=== PATIENT | male | born 1985 | race Hispanic/Latino ===

== ENCOUNTER 2018-02-04 22:01 | Emergency (ER) | payer OTHER ==
[2018-02-04 22:11] VITALS: RESP 18
[2018-02-04 23:03] LABS: BASO % 0.4 % (0.0-2.0); EOS # 0.2 K/uL (0.0-0.7); HEMOGLOBIN 15.1 g/dL (12.0-18.0); LYMPH # 2.5 K/uL (1.0-4.3); LYMPH % 35.1 % (20.0-40.0); MEAN CELL VOLUME 88.2 fl (80.0-94.0); MEAN CORPUSCULAR HEMOGLOBIN 29.7 pg (27.0-31.0); MEAN CORPUSCULAR HGB CONC 33.6 g/dL (33.0-37.0); MONO # 0.6 K/uL (0.0-0.8); MONO % 7.8 % (0.0-10.0); NEUT # 3.8 K/uL (1.8-7.0); NEUT % 53.7 % (50.0-75.0); RBC 5.09 Mil/uL (4.40-5.90); RED CELL DISTRIBUTION WIDTH 12.3 % (11.5-14.5); WHITE BLOOD COUNT 7.1 K/uL (4.8-10.8)
[2018-02-04 23:03] LABS: VENOUS BLOOD GAS BASE EXCESS 2.2 mmol/L (0.0-2.0); VENOUS BLOOD GAS PCO2 49 mmHg (40-60); VENOUS BLOOD GAS PO2 26 mm/Hg (30-55); VENOUS BLOOD PH 7.37 (7.32-7.43)
[2018-02-04 23:09] LABS: PROTHROMBIN TIME 11.5 Seconds (9.8-13.1)
[2018-02-04 23:11] LABS: PARTIAL THROMBOPLASTIN TIME 30.3 Seconds (25.6-37.1)
[2018-02-04 23:28] LABS: ALB/GLOB RATIO 1.4 (1.0-2.1); ALBUMIN 4.5 g/dL (3.5-5.0); ALT/SGPT 43 U/L (21-72); AST/SGOT 38 U/L (17-59); BLOOD UREA NITROGEN 14 mg/dl (9-20); CALCIUM 9.6 mg/dL (8.4-10.2); GFR NON-AFRICAN AMERICAN > 60; LIPASE 102 U/L (23-300)
--- NOTE | 2018-02-05 00:16 | ED PDOC ---
HPI: Chest Pain Time Seen by Provider: 02/04/18 22:28 Chief Complaint (Nursing): Chest Pain Chief Complaint (Provider): Chest Pain History Per: Patient History/Exam Limitations: no limitations Onset/Duration Of Symptoms: Intermittent Episodes (x1 month) Current Symptoms Are (Timing): Intermittent Episodes Additional Complaint(s): 32 year old male presents to the ED for evaluation of chest pain described as a mix of palpitations and heaviness on and off for the last month, his last episode tonight while trying to lie down for sleep. He states he has had this in the past 2 years ago, but had a completely normal cardiac workup at the time. Tonight, accompanying the chest pain was reported slight left sided mouth tingling, prompting the visit. Denies any numbness to the left side of his face, but does note it feels slightly different compared to the right side. Of note, he says he is very stressed as he works in [employer] and has a 9 month old at home. Otherwise, denies cough, shortness of breath, and fever. PMD: none provided Past Medical History Reviewed: Historical Data, Nursing Documentation, Vital Signs Vital Signs: Last Vital Signs Temp 97.8 F 02/04/18 22:06 Pulse 74 02/04/18 22:06 Resp 18 02/04/18 22:06 BP 143/71 02/04/18 22:06 Pulse Ox 99 02/04/18 22:06 - Medical History Other PMH: psorasis - Surgical History Surgical History: No Surg Hx - Family History Family History: Denies: AR, CAD - Social History Current smoker - smoking cessation education provided: No Alcohol: Social Drugs: Denies - Allergies Allergies/Adverse Reactions: Allergies Allergy/AdvReac Type Severity Reaction Status Date / Time No Known Allergies Allergy Verified 02/04/18 22:06 Review of Systems ROS Statement: Except As Marked, All Systems Reviewed And Found Negative Constitutional: Negative for: Fever Cardiovascular: Positive for: Chest Pain, Palpitations Respiratory: Negative for: Cough, Shortness of Breath Neurological: Positive for: Other (tingling left side of mouth). Negative for: Numbness Physical Exam - Reviewed Nursing Documentation Reviewed: Yes Vital Signs Reviewed: Yes - Physical Exam Appears: Positive for: No Acute Distress Head Exam: Positive for: ATRAUMATIC, NORMOCEPHALIC Skin: Positive for: Normal Color, Warm, Dry Eye Exam: Positive for: Normal appearance, EOMI, PERRL Neck: Positive for: Normal, Painless ROM, Supple Cardiovascular/Chest: Positive for: Regular Rate, Rhythm Respiratory: Positive for: Normal Breath Sounds. Negative for: Respiratory Distress Gastrointestinal/Abdominal: Positive for: Normal Exam, Soft. Negative for: Tenderness Extremity: Positive for: Normal ROM Neurologic/Psych: Positive for: Alert, Oriented (x3) - Laboratory Results Result Diagrams: 02/04/18 22:59 02/04/18 22:59 - ECG O2 Sat by Pulse Oximetry: 99 (RA) Pulse Ox Interpretation: Normal Medical Decision Making Medical Decision Making: Time: 2236 A/P: workup for chest pain, low suspicion of cardiac problem --no risk factors, no family hx, previous negative workup --heart score of [address] EKG abnormality Initial Plan: --Aspirin 325 mg PO --CXR --PT / PTT --CBC with differential --EKG --Trop I --Lipase --Drug screen --CMP --BNP --Alcohol serum --VBG 0015 Pt reevaluated with EKG showing NSR with early re-pull. Results discussed with pt and agreeable with discharge instructions to follow up with Dr. Bajwa for further cardiac workup. Scribe Attestation: Documented by Radha Garcia, acting as a scribe for Radha Hunt MD. Provider Scribe Attestation: All medical record entries made by the Scribe were at my direction and personally dictated by me. I have reviewed the chart and agree that the record accurately reflects my personal performance of the history, physical exam, med ica decision making, and the department course for this patient. I have also personally directed, reviewed, and agree with the discharge instructions and disposition. Disposition - Clinical Impression Clinical Impression: Atypical chest pain - Disposition Referrals: Compa Naqvi MD [Staff Provider] - Condition: IMPROVED Additional Instructions: Follow up with companion caregiver in one week. Return to the emergency department if symptoms worsen or if new symptoms develop. Avoid stimulants, drugs, and alcohol. Instructions: Chest Pain (DC) Forms: [facility] (Irish) Print Language: ARMENIAN
[2018-02-05 00:19] VITALS: BP 118/59; PULSE 61; TEMP 98.3
[2018-02-05 00:38] VITALS: O2SAT 99
--- NOTE | 2018-02-05 08:39 | RAD ---
Date of service: 02/04/2018 HISTORY: possible admission COMPARISON: No prior. FINDINGS: LUNGS: The lungs are well inflated and clear. PLEURA: No pleural effusions or pneumothorax. CARDIOVASCULAR: The heart is normal in size. No aortic atherosclerotic calcification present. OSSEOUS STRUCTURES: Within normal limits for the patient's age. VISUALIZED UPPER ABDOMEN: Normal. OTHER FINDINGS: None. IMPRESSION: No active pulmonary disease.
--- NOTE | 2018-02-05 16:05 | CARD ---
APPROVED REPORT Date of service: 02/04/2018 EKG Measurement Heart [id number] <Conclusion> Normal sinus rhythm T wave abnormality, consider anterior ischemia Abnormal ECG
== END 2018-02-05 00:37 | disposition home or self-care (01) ==
LOC: H.ER 22:01
DX: R07.89 Other chest pain (principal)